=== PATIENT | female | born 1975 ===

== ENCOUNTER → 2021-04-23 08:11 | Outpatient (BNVA) | payer OTHER, SELFPAY | PROVIDERS: Visit Provider Obstetrics & Gynecology | DX: Z01.419 Encounter for gynecological examination (general) (routine) without abnormal findings (principal); Z11.3 Encounter for screening for infections with a predominantly sexual mode of transmission; N93.9 Abnormal uterine and vaginal bleeding, unspecified; B37.2 Candidiasis of skin and nail | CPT/HCPCS: 99212 ==

== ENCOUNTER 2021-04-23 08:46 | Outpatient (REF) | payer OTHER, SELFPAY ==
[2021-04-23 09:36] LABS: Hemoglobin 13.6 g/dl (12.0-16.0); Mean Corpuscular Hemoglobin 30.3 pg (27.0-33.0); Mean Corpuscular Volume 89.1 fL (80.0-98.0); Mean Platelet Volume 11.1 fL (9.4-12.3); Platelet Count 219 X10*3/uL (160-400); Red Blood Count 4.49 X10*6/uL (4.20-5.50); Red Cell Distribution Width 11.9 % (11.0-16.0); White Blood Count 8.2 X10*3/uL (4.8-10.8)
[2021-04-23 10:28] LABS: HCG Quantitative < 2 mIU/mL; TSH reflex Free T4 1.09 uIU/mL (0.32-4.0)
[2021-04-23 10:37] LABS: HIV AB/AG Nonreactive (Nonreactive); HIV Num 1 0.08 S/CO (0.00-0.99); ~HepC Num1 0.11 S/CO (0.00-0.79); ~Hepatitis C Antibody Nonreactive (Nonreactive)
[2021-04-23 11:00] LABS: HBsAGNum1 0.24 S/CO (0.00-0.99); Hepatitis B Surface Antigen Negative (Negative)
[2021-04-23 13:11] LABS: CT PCR NOT DETECTED (Not Detect.); NG PCR NOT DETECTED (Not Detect.)
[2021-04-24 09:10] LABS: Syphilis Screen Nonreactive (Nonreactive)
[2021-04-27 22:07] LABS: HPV mRNA E6/E7 rflx Not Detected (Not Detected)
== END 2021-04-23 08:47 | disposition home or self-care (01) ==
LOC: HO.LAB 08:46
PROVIDERS: Visit Provider Obstetrics & Gynecology
DX: Z01.419 Encounter for gynecological examination (general) (routine) without abnormal findings (principal); N93.9 Abnormal uterine and vaginal bleeding, unspecified; Z11.3 Encounter for screening for infections with a predominantly sexual mode of transmission
CPT/HCPCS: 36415; 84443; 84702; 85027; 86780; 86803; 87340; 87389; 87491; 87591; 87624; 88142

== ENCOUNTER 2022-09-07 14:00 | Outpatient (REF) | payer MEDICAID, SELFPAY ==
[2022-09-10 05:39] LABS: HPV mRNA E6/E7 rflx Not Detected (Not Detected)
== END 2022-09-07 14:01 | disposition home or self-care (01) ==
LOC: HO.LNP 14:00
PROVIDERS: Visit Provider Obstetrics & Gynecology
DX: Z01.419 Encounter for gynecological examination (general) (routine) without abnormal findings (principal); Z11.51 Encounter for screening for human papillomavirus (HPV); N90.89 Other specified noninflammatory disorders of vulva and perineum
CPT/HCPCS: 87624; 88142; 99212

== ENCOUNTER 2023-12-22 10:26 | Outpatient (REF) | payer MEDICAID, SELFPAY ==
[2023-12-22 11:30] LABS: Hematocrit 44.2 % (37.0-47.0); Hemoglobin 15.2 g/dl (12.0-16.0); Mean Corpuscular HGB Conc 34.4 g/dl (31.0-35.0); Mean Corpuscular Hemoglobin 31.2 pg (27.0-33.0); Mean Corpuscular Volume 90.8 fL (80.0-98.0); Mean Platelet Volume 11.2 fL (9.4-12.3); Platelet Count 193 X10*3/uL (160-400); Red Blood Count 4.87 X10*6/uL (4.20-5.50); Red Cell Distribution Width 12.7 % (11.0-16.0); White Blood Count 7.1 X10*3/uL (4.8-10.8)
[2023-12-22 12:14] LABS: HCG Quantitative < 2 mIU/mL; TSH reflex Free T4 0.97 uIU/mL (0.32-4.0)
[2023-12-23 02:47] LABS: CT PCR NOT DETECTED (Not Detect.); NG PCR NOT DETECTED (Not Detect.)
[2023-12-23 21:42] LABS: Prolactin 16.6 ng/mL
== END 2023-12-22 10:27 | disposition home or self-care (01) ==
LOC: HO.LAB 10:26
PROVIDERS: Visit Provider Obstetrics & Gynecology
DX: N93.9 Abnormal uterine and vaginal bleeding, unspecified (principal); N90.89 Other specified noninflammatory disorders of vulva and perineum; Z97.5 Presence of (intrauterine) contraceptive device; Z12.31 Encounter for screening mammogram for malignant neoplasm of breast
CPT/HCPCS: 84146; 84443; 84702; 85027; 87491; 87591; 99212

== ENCOUNTER 2023-12-22 10:26 | Outpatient (AMB) | payer MEDICAID, SELFPAY ==
--- NOTE | 2023-12-22 10:32 | A.OFFVIS_ITS ---
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 In addition the patient had a right labial 0.5 cm dark lesion the recommendation was to schedule a biopsy but the patient has been busy with sickness in her family and did not get a chance to schedule that. Mirena IUD inserted 11/01/2019 Last co testing in 09/05 was negative Last mammogram was many years ago [facility] Medical History OLMAN II (cervical intraepithelial neoplasia II) Hypertension Migraine headache Surgical History History of tonsillectomy and adenoidectomy Hx of tubal ligation H/O LEEP Family History Father Diabetes Hypertension Mother Hypertension Female Reproductive History Menstrual Age of Menarche: 12 Review of Systems Const All systems reviewed & are unremarkable except as noted in HPI and below Card Reports as per HPI Resp Reports as per HPI GI Reports as per HPI and Reports no additional complaints Reports as per HPI Physical Exam Const General: cooperative, healthy appearing and comfortable Chest Chest palpation & inspection: normal inspection of the chest and normal palpation of entire chest wall Breast/axilla inspection: normal inspection of the breasts and normal inspection of the axillae Breast/axilla palpation: normal palpation of the breasts, normal palpation of the axillae and no axillary lymphadenopathy Resp Effort & Inspection: normal respiratory effort Auscultation: clear to auscultation bilaterally Percussion: percussion normal Cardio Palpation: normal PMI Rate: regular rate Rhythm: regular rhythm Heart sounds: no murmurs and no rubs Peripheral pulses: Peripheral pulses 2+ throughout GI Inspection: Yes normal to inspection Palpation (GI): Soft to palpation, nontender, no guarding, not rigid and No hepatosplenomegaly present Percussion: Yes normal to percussion Auscultation: normal bowel sounds Rectal Exam - Female: deferred General: Yes bladder normal to palpation External Female Exam: normal external appearance (0.5 cm right labial dark lesion) and No lesion Speculum Exam - Vagina: normal appearance of the vagina, normal palpation, normal vaginal discharge and not erythematous Speculum Exam - Cervix: normal appearance of the cervix and normal palpation Bimanual exam- vagina & uterus: normal bimanual exam, normal palpation, uterine size normal, bladder normal to palpation, consistency normal and normal palpation Bimanual Exam- Adnexa, other: normal adnexae, no masses and no tenderness Assessment & Plan Assessment & Plan (1) Abnormal uterine bleeding (AUB): Comment: On Mirena IUD Code(s): N93.9 - Abnormal uterine and vaginal bleeding, unspecified Category: Medical Plan: Screening mammogram, GC and chlamydia taken CBC, TSH, prolactin, HCG, and pelvic ultrasound ordered. Discussed with the patient the different causes of abnormal bleeding including thyroid disorders, uterine and ovarian pathology, endometrial hyperplasia, carcinoma and other potential causes. Discussed with the patient the work up including CBC (to r/o anemia), TSH, prolactin, pelvic Ultrasound, endometrial biopsy to r/o endometrial pathology. All questions answered and the patient verbalized understanding. Instructed the patient to schedule an appointment for an endometrial biopsy in 2 weeks. (2) Labial lesion: Comment: Right labia majora 0.5 cm dark lesion Code(s): N90.89 - Other specified noninflammatory disorders of vulva and perineum Category: Medical Plan: Instructions given to the patient to Schedule a vulvar biopsy within 2 weeks Orders: Orders US pelvic and transvaginal Today N93.9 - Abnormal uterine and vaginal bleeding, unspecified Prolactin Today N93.9 - Abnormal uterine and vaginal bleeding, unspecified HCG Quantitative Today N93.9 - Abnormal uterine and vaginal bleeding, unspecified Complete Blood Count no Diff Today N93.9 - Abnormal uterine and vaginal bleeding, unspecified MM screening mammo BI Today Z12.31 - Encounter for screening mammogram for malignant neoplasm of breast TSH reflex Free T4 Today N93.9 - Abnormal uterine and vaginal bleeding, unspecified Coding Level of Care Code Est Pt Level 3 (12353) Diagnoses Abnormal uterine bleeding (AUB) N93.9 Labial lesion N90.89
[2023-12-22 10:34] VITALS: BP 152/92; BMI 26.0
== END 2023-12-22 10:55 | disposition home or self-care (01) ==
LOC: HO.HWS 10:26
PROVIDERS: Visit Provider Obstetrics & Gynecology
DX: N93.9 Abnormal uterine and vaginal bleeding, unspecified (principal); N90.89 Other specified noninflammatory disorders of vulva and perineum
CPT/HCPCS: 99213

== ENCOUNTER 2023-12-22 11:02 | Outpatient (REF) | payer MEDICAID, SELFPAY | END 2023-12-22 11:03 | disposition home or self-care (01) | LOC: HO.LNP 11:02 | PROVIDERS: Visit Provider Obstetrics & Gynecology | DX: Z13.89 Encounter for screening for other disorder (principal) ==

== ENCOUNTER 2023-12-30 13:13 | Outpatient (REF) | payer MEDICAID, SELFPAY ==
--- NOTE | ~2023-12-30 | US_ITS ---
EXAMINATION: US PELVIS CLINICAL INFORMATION: Abnormal uterine and vaginal bleeding; the last menstrual period is not specified. COMPARISON: None available. TECHNIQUE: Ultrasound of the pelvis is performed using both transabdominal and transvaginal transducers along with Doppler. Transvaginal imaging is performed due to inadequate visualization transabdominally. FINDINGS: Uterus: The uterus is anteverted and anteflexed. The uterus measures 7.1 x 3.0 x 3.9 cm. cm. There are nabothian cysts within the cervix, some calcified An intrauterine device is seen, properly situated within the endometrial canal. The endometrial stripe is very thin and is not measured. The uterus is smooth in contour and has normal myometrial echogenicity. No visible fibroid. Adnexa: Both ovaries are visualized. There is normal color flow to the adnexa. There is no ovarian torsion. There is no pelvic ascites or fluid collection. Right ovary measures 2.4 x 1.3 x 1.7 cm, volume 2.8 mL. Left ovary measures 2.6 x 1.2 x 2.0 cm, volume 3.2 mL. US/US pelvic and transvaginal IMPRESSION: 1. An intrauterine device is seen, probably situated within the endometrial canal. 2. There are nabothian cysts within the cervix, some calcified. Electronically signed by: Rylan Fay MD 01/16/2024 10:51 PM EDT
== END 2023-12-30 13:14 | disposition home or self-care (01) ==
LOC: HO.US 13:13
PROVIDERS: Visit Provider Obstetrics & Gynecology
DX: N93.9 Abnormal uterine and vaginal bleeding, unspecified (principal)
CPT/HCPCS: 76830; 76856

== ENCOUNTER 2024-02-07 13:12 | Outpatient (REF) | payer MEDICAID, SELFPAY | END 2024-02-07 13:13 | disposition home or self-care (01) | LOC: HO.LNP 13:12 | PROVIDERS: Visit Provider Obstetrics & Gynecology | DX: Z30.432 Encounter for removal of intrauterine contraceptive device (principal); N90.89 Other specified noninflammatory disorders of vulva and perineum; N93.9 Abnormal uterine and vaginal bleeding, unspecified | CPT/HCPCS: 56605; 58100; 58301; 81025; 88305 ==

== ENCOUNTER 2024-02-07 13:12 | Outpatient (AMB) | payer MEDICAID, SELFPAY ==
--- NOTE | 2024-02-07 13:15 | MHC.OFFVIS ---
Vital Signs 02/07/24 13:22 Height 5 ft 5 in Weight 154 lb 5.177 oz BMI 25.7 BP 142/80 H Intake Visit Reasons: US follow up/EMB/vulva BX Web Weaver Required: No Information Interpreted: non-clinical & clinical Capital Equipment Specialist: Capital Equipment Specialist Present (Marla CONTE) Accompanied by: Self / Same As Patient Allergies No Known Allergies [No Known Allergies*] Allergy (Verified 12/22/23 10:38) Is last menstrual period known: No (mirena) HPI Comments Details: Presenting for Mirena IUD removal the patient's request, EMB and right vulvar lesion excision PFSH Medical History OLMAN II (cervical intraepithelial neoplasia II) Hypertension Migraine headache Surgical History History of tonsillectomy and adenoidectomy Hx of tubal ligation H/O LEEP Family History Father Diabetes Hypertension Mother Hypertension Female Reproductive History Menstrual Age of Menarche: 12 Physical Exam Vital Signs: BMI result Body Mass Index 25.7 Office Procedures Endometrial Biopsy Details: The patient was counseled regarding the indication and benefits of endometrial sampling to rule out endometrial pathology including not limited to endometrial hyperplasia or endometrial cancer and others; The alternatives (Either do nothing vs. hysteroscopy D&C) & the risks were discussed with the patient including but not limited: pain, uterine perforation, bleeding, infection, possible injury to bladder, bowel, ureter, possible need for blood transfusion with all its possible risks. The patient verbalized understanding all questions answered and signed consent. Urine test done in the office was negative The patient was placed into the dorsal lithotomy position; a speculum was inserted in the vagina. Using aseptic technique for the procedure, the cervix was cleansed with Betadine. The anterior lip of the cervix was grasped with a single tooth tenaculum. The uterus was sounded to 7 cm with a 4 mm Pipelle was used. Tissues samples were obtained and placed in formalin, in a patient labeled container and sent to the pathology department. At the end of the procedure, there was minimal bleeding noted The patient tolerated the procedure well and was discharged in good condition with the following instructions: Nothing in the vagina until the bleeding stops. No sex until the bleeding stops, to call if any of the following occurs: fever (>100.4), flu-like symptoms, abdominal pain, heavy bleeding, four smelling vaginal discharge. The patient was instructed to schedule a Follow up appointment in 2 weeks to discuss pathology results of the biopsy and treatment options. This note was generated with a voice recognition program. Some errors may have been overlooked during the review of this note. Sometimes these errors may affect the content or meaning of a given sentence. 93666-Bhrgduvzflw Biopsy HEALTH SOCIAL WORK PROFESSOR Biopsy Before the procedure was started d/w patient the procedure, alternatives ( do nothing, medical rx), & all the risks associated with the procedure ( bleeding , infection, vulvar scarring, painful intercourse, injury to vessels, possible need for transfusion with all its risks) then patient signed the consent. Preop dx: Right labia majora 0.5 cm dark lesion Op: Right labia majora 0.5 cm dark lesion lesion excision Post op: Same Anesthesia: Lidocaine 1% 3cc used Procedure: Using betadine the area was scrubbed and draped in the usual manner. 3 cc of lidocaine was used for anesthesia at the Right labia majora 0.5 cm dark lesion area ; using scissors and pickup the Right labia majora 0.5 cm dark lesion was excised, Vicryl was used to approximate the edges. Pressure was used for hemostasis. The patient tolerated the procedure well. Discharge Instructions: The patient was instructed to schedule an appointment in 2 weeks for follow-up and to call if temp>100.4, area of the biopsy redness or pain, nausea/vomiting. This note was generated with a voice recognition program. Some errors may have been overlooked during the review of this note. Sometimes these errors may affect the content or meaning of a given sentence. 25762-Pyfvip of Vulva/Perineum Procedure code (CPT) selection complete IUD Insert/Removal Details Details: Counseling/Consent: After discussing with the patient the risks of the procedure including bleeding, infection, scar tissue formation, , possible injury to blood vessels or nerves, chronic arm pain, blood transfusion, and irregular unpredictable bleeding Alternative options were discussed with the patient including but not limited: Do nothing. The patient signed the consent and agreed with the plan; all questions answered. Urine test was done in the office and was negative Preop dx: Requesting IUD removal Op: IUD removal Post op dx: same EBL= 10 cc Procedure: The patient was put in the dorsal lithotomy position a speculum was inserted in the vagina the IUD thread identified. Using a Kat clamp the thread was grasped and the IUD pulled out with no complications. The patient tolerated the procedure well and was advised to use a different method for contraception. Discharge instructions: Instructions were given to the pt to call if temp>100.4, abdominal pain heavy vaginal bleeding, n/v occur. The patient verbalized understanding and all questions answered. This note was generated with a voice recognition program. Some errors may have been overlooked during the review of this note. Sometimes these errors may affect the content or meaning of a given sentence. 24864-XJS Removal Procedure code (CPT) selection complete Results AMB Test Urine AMB Test Urine Negative Last Edit by Marla Telles CMA on 02/07/24 13:30 Assessment & Plan Assessment & Plan (1) Encounter for IUD removal: Code(s): Z30.432 - Encounter for removal of intrauterine contraceptive device Category: Medical Plan: Mirena IUD removed, see procedure note (2) Labial lesion: Comment: Right labia majora 0.5 cm dark lesion Code(s): N90.89 - Other specified noninflammatory disorders of vulva and perineum Category: Medical Plan: Right labia majora 0.5 cm dark lesion excised, see procedure note (3) Abnormal uterine bleeding (AUB): Code(s): N93.9 - Abnormal uterine and vaginal bleeding, unspecified Category: Medical Plan: EMB done, see procedure Orders: Orders AMB Endometrial Biopsy Today N93.9 - Abnormal uterine and vaginal bleeding, unspecified AMB HCG Urine Test Today Z32.02 - Encounter for test, result negative AMB HEALTH SOCIAL WORK PROFESSOR Biopsy Today N90.89 - Other specified noninflammatory disorders of vulva and perineum Coding Level of Care Code Procedure Only Diagnoses Encounter for IUD removal Z30.432 Labial lesion N90.89 Abnormal uterine bleeding (AUB) N93.9 CPT Codes Endometrial Biopsy - CPT: 20199-Fndrsdruroy Biopsy ([id number]) HEALTH SOCIAL WORK PROFESSOR Biopsy - CPT: 10934-Vmpjyd of Vulva/Perineum ([id number]) Details - CPT: 37757-LSW Removal ([id number])
[2024-02-07 13:22] VITALS: BP 142/80; BMI 25.7
== END 2024-02-07 13:55 | disposition home or self-care (01) ==
PROVIDERS: Visit Provider Obstetrics & Gynecology
DX: N93.9 Abnormal uterine and vaginal bleeding, unspecified (principal); N90.89 Other specified noninflammatory disorders of vulva and perineum; Z30.432 Encounter for removal of intrauterine contraceptive device; Z32.02 Encounter for pregnancy test, result negative
CPT/HCPCS: 56605; 58100; 58301

== ENCOUNTER 2024-02-14 11:56 | Outpatient (AMB) | payer MEDICAID, SELFPAY ==
--- NOTE | 2024-02-14 12:08 | MHC.OFFVIS ---
Vital Signs 02/14/24 12:14 Height 5 ft 5 in Weight 154 lb 5.177 oz BMI 25.7 Intake Visit Reasons: Mirena Insertion Allergies No Known Allergies [No Known Allergies*] Allergy (Verified 12/22/23 10:38) HPI Comments Details: The patient is presenting for follow-up to discuss the results of her abnormal uterine bleeding workup and options of treatment. The following workup was done.: H&H within normal TSH, hCG, GC and chlamydia were negative. Endometrial/vulvar biopsy pathology showed the following: A. Endometrium, biopsy: Fragments of inactive endometrium with pseudo-decidual stromal change consistent with progestin effect; negative for atypia, hyperplasia or malignancy. B. Vulva, right labia majora, biopsy: Fibroma Co testing was done in 2022 was negative. Mammogram was not done yet Pelvic ultrasound showed the following: IMPRESSION: 1. An intrauterine device is seen, probably situated within the endometrial canal. 2. There are nabothian cysts within the cervix, some calcified. IUD was removed few weeks ago PFS Medical History OLMAN II (cervical intraepithelial neoplasia II) Hypertension Migraine headache Surgical History History of tonsillectomy and adenoidectomy Hx of tubal ligation H/O LEEP Family History Father Diabetes Hypertension Mother Hypertension Female Reproductive History Menstrual Age of Menarche: 12 Review of Systems Const All systems reviewed & are unremarkable except as noted in HPI and below Reports as per HPI and Reports no additional complaints GI Reports no additional complaints Reports no additional complaints Physical Exam Vital Signs: BMI result Body Mass Index 25.7 Assessment & Plan Assessment & Plan (1) Abnormal uterine bleeding (AUB): Code(s): N93.9 - Abnormal uterine and vaginal bleeding, unspecified Category: Medical Plan: Discussed with the patient the results of the work up done and options of treatment including Lysteda, BCP's, Mirena IUD. All pros, cons, risks and benefits if each option was discussed with the patient and the patient decided to think about it and get back to us. All questions answered the patient verbalized understanding. (2) Labial lesion: Comment: Right labia majora 0.5 cm dark lesion Code(s): N90.89 - Other specified noninflammatory disorders of vulva and perineum Category: Medical Plan: Discussed with the patient the results the pathology. All questions answered, the patient verbalized understanding Coding Level of Care Code Est Pt Level 3 (74563) Diagnoses Abnormal uterine bleeding (AUB) N93.9 Labial lesion N90.89
[2024-02-14 12:14] VITALS: BMI 25.7
== END 2024-02-14 12:30 | disposition home or self-care (01) ==
PROVIDERS: Visit Provider Obstetrics & Gynecology
DX: N93.9 Abnormal uterine and vaginal bleeding, unspecified (principal); N90.89 Other specified noninflammatory disorders of vulva and perineum
CPT/HCPCS: 99213

== ENCOUNTER → 2024-02-14 11:56 | Outpatient (BNVA) | payer MEDICAID, SELFPAY | PROVIDERS: Visit Provider Obstetrics & Gynecology | DX: N93.9 Abnormal uterine and vaginal bleeding, unspecified (principal); N90.89 Other specified noninflammatory disorders of vulva and perineum; N88.8 Other specified noninflammatory disorders of cervix uteri; Z97.5 Presence of (intrauterine) contraceptive device | CPT/HCPCS: 99212 ==

== ENCOUNTER 2024-08-16 10:05 | Outpatient (REF) | payer MEDICAID, SELFPAY ==
--- OUTSIDE RECORDS SUMMARY | 2024-08-16 12:08 | XMS_ITS | Encounter Summary ---
Author Organization [facility] Address [address] [place] [address] Care Team Providers Care Registration Scheduling Specialist Name Role Phone Nan Ozzievanessa OROPEZA-Dipak Primary Care Provider [phone] Reason for Visit * Reason Comments Establish Care Encounter Details Date Type Department Care Team (Late st Contact Info) Description 08/13/2024 9:20 AM EDT Office Visit [address] [phone] Brenna Deleon PA [address] [place] [address] Encounter to establish care (Primary Dx); Seasonal [...] [place]. Reports that she is going to [place] in two weeks and needs 90 day [...] periods. Has an appointment next week with ENRICHMENT DIRECTOR o get IUDplaced in again. Recent CPE: [...] (FLONASE) 50 mcg/actuation nasal spray Place 1 [place] in both nostrils once daily shake liquid 16 g 1 losartan (COZAAR) 25 mg tablet TAKE 1 TABLET BY MOUTH DAILY 90 Tablet 1 hydrOXYzine HCL (ATARAX) 50 mg tablet Take 1 Tablet by mouth 3 (three) times daily as needed for anxiety 90 Tablet 0 No current facility-administered medications for this visit. Specialists/Care Team: TRADE FACILITATOR: Gracie Depression Screenin01/25/2024 1:45 PM How many [...] as patient has BH appointment tomorrow with [facility]. Patient is aware of appointment . No [...] 50 MCG/ACTUATION NASAL SPRAY,SUSPENSION - Place 1 [place] in both nostrils once daily shake liquid Z76.0 Medication refill Plan : CETIRIZINE 10 MG TABLET - Take 1 Tablet by mouth once daily FLUTICASONE PROPIONATE 50 MCG/ACTUATION NASAL SPRAY,SUSPENSION - Place 1 [place] in both nostrils once daily shake liquid I10 Essential hypertension - BP elevation in office most likely secondary to missed med doses. Restart losartan 25 mg daily and keep low salt diet G47.00 Insomnia, unspecified type - continue hydroxyzine 50 mg TID for anxiety due to grief and to help sleep at night N92.0 Polymenorrhea - f/u with sample prep technician Z23 Immunization due Plan : TDAP VACCINE [...] documented as of this encounter Care Teams Registration Scheduling Specialist Relationship Specialty Start Date End Date Efrem Montana FNP-C [address] [place] [id number] PCP - General Internal Medicine 10/04/23 documented as of this encounter
--- OUTSIDE RECORDS SUMMARY | 2024-08-16 12:08 | XMS_ITS | Clinical Summary ---
Author Organization [facility] Address [address] [place] [address] Care Team Providers Care Camera Engineer Name Role Phone Efrem Montana SALESPERSON PETS AND PET SUPPLIES-C Primary Care Provider [phone] [phone] Source Comments PLEASE NOTE, if this patient [...] sprayIndications :Seasonal allergies,Medica tion refill Place 1 [place] in both nostrils once daily shake liquid [...] Description 08/13/2024 9:20 AM EDT Office Visit [address] [phone] Brenna Deleon PA Encounter to [...] 11/12/2024 Postpo martin from 1976 (Patient postponement) [id number] ( season) 2024 Postponed from 01/14 (Patient [...] A1C 5.3 <5.7 % of total Hgb [facility] Comment: For the purpose of screening for the presence of diabetes: <5.7% ? Consistent with the absence of diabetes 5.7-6.4% ?Consistent with increased risk for diabetes ?(prediabetes) > or =6.5% ??Consistent with diabetes This assay result is consistent with a decreased risk of diabetes. Currently, no consensus exists regarding use of hemoglobin A1c for diagnosis of diabetes in children. According to [place] Diabetes Association (ADA) guidelines, hemoglobin A1c <7.0% represents optimal control in non- diabetic patients. Different metrics may apply to specific patient populations. Standards of Medical Care in Diabetes(ADA). ?? Blood Blood / Unknown 01/25/2024 3 :02 PM EDT 01/25/2024 3:03 PM EDT Narrative [facility] - 01/26/2024 8:02 AM EDT FASTING:YES Efrem Montana SALESPERSON PETS AND PET SUPPLIES-C LAB - BLOOD DRAW Ne R cristian - Final [facility] [address] [place] [address], [facility] [address] [place] [phone] * LIPID PANEL (01/25/2024 3:02 PM EDT) [facility] Signature CHOLESTEROL, TOTAL 184 <200 mg/dL [facility] HDL CHOLESTEROL 71 > OR = 50 mg/dL [facility] TRIGLYCERIDES 101 <150 mg/dL [facility] LDL-CHOLESTEROL 94 99 mg/dL (calc) [facility] Comment: Reference range: <100 Desirable range <100 mg/dL for primary prevention; ?? <70 mg/dL for patients with CHD or diabetic patients with > or = 2 CHD risk factors. LDL-C is now calculated using the Avtar calculation, which is a validated novel method providing better accuracy than the Friedewald equation in the estimation of LDL-C. Devin JULIO et al. HUSSEIN. 2013;310(19): 8072-8081 (http://education.[employer]ware Solutions/faq/UDG847) CHOL/HDLC RATIO 2.6 <5.0 (calc) [facility] NON-HDL CHOLESTEROL 113 <130 mg/dL (calc) [facility] Comment: For patients with diabetes plus 1 major ASCVD risk factor, treating to a non-HDL-C goal of <100 mg/dL (LDL-C of <70 mg/dL) is considered a therapeutic option. Blood Blood / Unknown 01/25/2024 3 :02 PM EDT 01/25/2024 3:03 PM EDT Narrative [facility] - 01/26/2024 8:02 AM EDT FASTING:YES Efrem Montana SALESPERSON PETS AND PET SUPPLIES-C LAB - BLOOD DRAW Final Re sult [facility] [address] [address], [facility] [address] [place] [address] from Last 3 Months or Most Recently Relevant to Health Maintenance Insurance [facility] [employer] Care Teams Camera Engineer Relationship Specialty Start Date End Date Efrem Montana FNP-C [address] [place] [address] PCP - General Internal Medicine 10/04/23
--- OUTSIDE RECORDS SUMMARY | 2024-08-16 12:08 | XMS_ITS | Clinical Summary ---
Author Organization [employer] Address [address] [place] [address] [address] [place] [address] Care Team Providers Care Mail Clerk Name Role Phone Unavailable Primary Care Provider [...]
[2024-08-17 02:42] LABS: CT PCR NOT DETECTED (Not Detect.); NG PCR NOT DETECTED (Not Detect.)
== END 2024-08-16 10:06 | disposition home or self-care (01) ==
LOC: HO.LNP 10:05
PROVIDERS: Visit Provider Obstetrics & Gynecology
DX: Z30.430 Encounter for insertion of intrauterine contraceptive device (principal); Z32.02 Encounter for pregnancy test, result negative; Z87.410 Personal history of cervical dysplasia; Z11.3 Encounter for screening for infections with a predominantly sexual mode of transmission
CPT/HCPCS: 58300; 81025; 87491; 87591; J7298

== ENCOUNTER 2024-08-16 10:05 | Outpatient (AMB) | payer MEDICAID, SELFPAY ==
[2024-08-16 10:31] VITALS: BP 122/76; BMI 25.6
--- NOTE | 2024-08-16 10:31 | MHC.OFFVIS ---
Vital Signs 08/16/24 10:31 Height 5 ft 5 in Weight 154 lb BMI 25.6 BP 122/76 Intake Visit Reasons: Mirena insertion Accompanied by: Self / Same As Patient Allergies No Known Allergies [No Known Allergies*] Allergy (Verified 08/16/24 10:32) HPI Comments Details: Presenting for IUD insertion [facility] Medical History (Updated 08/16/24 @ 10:54 by Roc Spence MD) OLMAN II (cervical intraepithelial neoplasia II) Hypertension Migraine headache Surgical History History of tonsillectomy and adenoidectomy Hx of tubal ligation H/O LEEP Family History Father Diabetes Hypertension Mother Hypertension Female Reproductive History Menstrual Age of Menarche: 12 Physical Exam Vital Signs: Last Vital Signs BP 122/76 08/16/24 10:31 Office Procedures IUD Insert/Removal Details Details: The patient is presenting for Mirena IUD insertion Urine test was done in the office and was negative; All the contraindications were excluded. The following possible complications were discussed with the patient: Intrauterine , Ectopic , Sepsis, Pelvic Infection, Irregular Bleeding and Amenorrhea, Perforation, Expulsion, Ovarian Cysts, Breast Cancer, The following adverse effects were discussed with the patient: alteration of menstrual bleeding pattern, including: unscheduled uterine bleeding decreased uterine bleeding increased scheduled uterine bleeding female genital tract bleeding ,amenorrhea , genital discharge , vulvovaginitis , breast pain , benign ovarian cyst and associated complications , dysmenorrhea , Gastrointestinal disorders abdominal/pelvic pain, headache/migraine , back pain , acne , depression Alternative options were discussed with the patient including but not limited: control pills, patch, NuvaRing, Depo-medroxyprogesterone acetate, Nexplanon, copper IUD, sterilization, vasectomy, others The procedure was explained in detail to patient , at the end patient signed the informed consent obtained. A no touch technique was used throughout the procedure. A speculum was placed into vagina and cervix was cleaned with betadine). A tenaculum was placed. A plastic sound was advanced through the external and internal os until it reached the fundus of the uterus, the depth was 8 cm. The sound was then withdrawn. The IUD was loaded in a sterile manner and advanced into position. The string was visualized and cut to 3 cm. Tenaculum site hemostatic. All instruments removed from vagina. Patient tolerated the procedure well. NO complications were noted. Patient was instructed to call for fever over 100.4, significant pain unrelieved by Motrin, IUD expulsion, heavy bleeding, or abnormal discharge. In addition, the following clinical considerations were discussed with the patient to call for removal: A stroke or heart attack ,Very severe or migraine headaches ,Unexplained fever ,Yellowing of the skin or whites of the eyes, as these may be signs of serious liver problems , or suspected , Pelvic pain or pain during sex ,HIV positive seroconversion in herself or her partner , Possible exposure to sexually transmitted infections Unusual vaginal discharge or genital sores , severe vaginal bleeding or bleeding that lasts a long time, or if she misses a menstrual period, Inability to feel Mirena's threads Counseled the patient that the IUD does not protect against STI's, recommended use of condoms for the first 7 days post insertion and explained to the patient that condoms are recommended for patients at risk for sexually transmitted infections. Informed the patient that Mirena IUD is FDA approved for 8 years for contraception for 5 years for the treatment of heavy menses Instructed the patient to schedule a Follow up appointment in 4 to 6 weeks following insertion. This note was generated with a voice recognition program. Some errors may have been overlooked during the review of this note. Sometimes these errors may affect the content or meaning of a given sentence. 05105-HYQ Insertion Procedure code (CPT) selection complete Office Meds Mirena 21 mcg/24 hr (up to 8 years) 52 mg intrauterine device Performing Provider: Roc Spence MD Performing Location: [facility] Documented (not given) by: Roc Spence MD on 08/16/24 10:53 Dose Route Admin Location Dispensed Lot Number Expiration Date [facility] Piercing Specialist 1 device intrauterine ea Results AMB Test Urine AMB Test Urine Negative Last Edit by Marla Telles CMA on 08/16/24 10:45 Results Reviewed Results Reviewed: Laboratory Last Values [facility] Negative 08/16/24 10:45 Assessment & Plan Assessment & Plan (1) Encounter for IUD insertion: Code(s): Z30.430 - Encounter for insertion of intrauterine contraceptive device Category: Medical Plan: GC/CT taken, Mirena IUD inserted Orders: Orders AMB HCG Urine Test Today Z32.02 - Encounter for test, result negative AMB IUD Insertion/Removal - Practice Supplied Today Z30.430 - Encounter for insertion of intrauterine contraceptive device Medications: New Mirena (levonorgestrel) 1 device intrauterine ONCE 1 ea 0RF IUD insertion NS Z30.430 - Encounter for insertion of intrauterine contraceptive device Coding Level of Care Code Procedure Only Diagnoses Encounter for IUD insertion Z30.430 CPT Codes Details - CPT: 99521-SEJ Insertion ([id number])
--- OUTSIDE RECORDS SUMMARY | 2024-08-16 10:50 | XMS_ITS | Clinical Summary ---
Author Organization [employer] Address [address] [place] [address] [address] [place] [address] Care Team Providers Care Firebreak Cutter Name Role Phone Unavailable Primary Care Provider Unavailabl e Social History Tobacco Use Types Packs/Day Years Used Date Smoking Tobacco: Never Assessed Comments Unknown Sex and Gender Information Value Date Recorded Sex Assigned at Female 03/15/2022 10:15 AM EDT Legal Sex Female 10:15 AM EDT Gender Identity Not on file Sexual Orientation Not on file Plan of Treatment Health Maintenance Due Date Last Done Comments CT Colonography 1976 Colonoscopy 1976 Colorectal Cancer Screening 1976 Depression Screening 1976 FIT DNA/Cologuard 1976 FIT 1976 FOBT 1976 Sigmoidoscopy 1976 Alcohol/Substance Use Screening 1988 Tobacco Screening 1988 Family Planning (PISQ) 1991 DTaP/Tdap/Td Vaccines (1 - Tdap) 1995 Hepatitis B Vaccines (1 of 3 - 19+ 3-dose series) 1995 Pap Smear 1997 Cervical Cancer Screening 2006 HPV/Cotest 2006 Mammogram 2016 COVID-19 Vaccine ( - 2023-2 5 season) 2024 Influenza Vaccine (#1) 2024 2, 02/27/2021, 03/11/2015 Zoster Vaccines (1 of 2) 2026 RSV Patients and Patients Aged 60 years or older (1 - 1-dose 75+ series) 2051 HIB Vaccines Aged Out No longer eligi ble based on patient's age to complete this topic HPV Vaccines Aged Out No longer eligi ble based on patient's age to complete this topic Hepatitis A Vaccines Aged Out No long er eligible based on patient's age to complete this topic IPV Vaccines Aged Out No longer eligi ble based on patient's age to complete this topic Meningococcal Vaccine Aged Out No milady keiko eligible based on patient's age to complete this topic Pneumococcal Vaccine: Pediatrics (0 to 5 Years) and At-Risk Patients (6 to 49) Years) Aged Out No longer eligible b ased on patient's age to complete this topic RSV under 20 months Aged Out No longe r eligible based on patient's age to complete this topic Rotavirus Vaccines Aged Out No longer eligible based on patient's age to complete this topic
--- OUTSIDE RECORDS SUMMARY | 2024-08-16 10:50 | XMS_ITS | Clinical Summary ---
Author Organization [facility] Address [address] [place] [address] Care Team Providers Care Property Staff Accountant Name Role Phone Efrem Montana CHAINSTITCH TUNNEL ELASTIC OPERATOR-C Primary Care Provider [phone] Source Comments PLEASE NOTE, if this patient is a minor, it may be UNLAWFUL to discuss sensitive information that is contained in these records (such as FAMILY PLANNING, MENTAL HEALTH or SUBSTANCE ABUSE) with the minor patient's parent or other person without the patient's specific authorization.[facility] Allergies No known active allergies Medications hydrOXYzine HCL (ATARAX) 50 mg tabletIndication s:Grief reaction Take 1 Tablet by mouth 3 (three) times daily as needed for anxiety 90 Tablet 01/25/20 24 Active losartan (COZAAR) 25 mg tabletIndication s:Essential hypertension TAKE 1 TABLET BY MOUTH DAILY 90 Tablet 1 08/08/19 25 Active cetirizine (ZYRTEC) 10 mg tabletIndication s:Seasonal allergies,Medica tion refill Take 1 Tablet by mouth once daily 90 Tablet 1 08/14/19 25 Active fluticasone (FLONASE) 50 mcg/actuation nasal sprayIndications :Seasonal allergies,Medica tion refill SHAKE LIQUID WELL AND INSTILL 1 SPRAY IN BOTH NOSTRILS DAILY 16 g 1 08/16/19 25 Active cetirizine (ZYRTEC) 10 mg tabletIndication s:Seasonal allergies TAKE 1 TABLET BY MOUTH EVERY DAY 30 Tablet 1 08/06/19 025 Discontinued(Re order (E-Cancel Not Sent)) BANOPHEN 50 mg capsuleIndicatio ns:Seasonal allergies TAKE ONE CAPSULE BY MOUTH EVERY NIGHT AT BEDTIME NEEDED FOR ITCHING 30 Capsule 1 08/06/19 23 025 Discontinued(Th erapy completed/Not needed) fluticasone (FLONASE) 50 mcg/actuation nasal sprayIndications :Seasonal allergies SHAKE LIQUID AND USE 1 SPRAY IN EACH NOSTRIL EVERY DAY 16 g 1 01/19/20 23 025 Discontinued(Re order (E-Cancel Not Sent)) losartan (COZAAR) 25 mg tabletIndication s:Essential hypertension Take 1 Tablet by mouth once daily 90 Tablet 1 01/25/20 24 025 Discontinued fluticasone (FLONASE) 50 mcg/actuation nasal sprayIndications :Seasonal allergies,Medica tion refill Place 1 [place] in both nostrils once daily shake liquid 16 g 1 08/14/19 25 025 Discontinued Active Problems Problem Noted Date Diagnosed Date Grief reaction 08/14/2024 Insomnia 08/13/2024 Polymenorrhea 08/13/2024 Tubal ligation status, age 31 10/06/2021 Essential hypertension 10/06/2021 Seasonal allergies 10/06/2021 Hx of migraines 10/06/2021 Tobacco dependency 10/06/2021 Resolved Problems Problem Noted Date Diagnosed Date Resolved Date History of tonsillectomy and adenoidectomy- age 9 10/06/2021 09/24/2022 Encounters Date Type Department Care Team Description 08/13/2024 9:20 AM EDT Office Visit [address] [phone] Brenna Deleon PA Encounter to establish care (Primary Dx); Seasonal allergies; Medication refill; Essential hypertension; Insomnia, unspecified type; Polymenorrhea; Immunization due; Screening for colon cancer; Grief reaction from Last 3 Months Immunizations Immunization Administration Dates Next Due Flu, Preservative Free 03/22/2022,02/27/2021 INFLUENZA, SEASONAL, INJECTABLE 03/11/2015 PNEUMOCOCCAL CONJUGATE PCV 20 (Prevnar) 08/14/19 25 TDAP 08/13/2024 Family History Medical History Relation Name Comments Heart Problems Brother Heart attack Brother Relation Name Status Comments Brother Father Mother Social History Tobacco Use Types Packs/Day Years Used Date Smoking Tobacco: Some Days Smokeless Tobacco: Never Tobacco Cessation:Ready to Q uit: No; Counseling Given: Yes Comments:socially Alcohol Use Standard Drinks/Week Comments Yes 0 (1 standard drink = 0.6 oz pur e alcohol) socially Social Connections Answer Date Recorded Connectedness 0 01/22/2024 Financial Resource Strain Answer Date R ecorded Financial Resource Strain 0 2020 Stress Answer Date Recorded Stress 0 11/25/2020 Physical Activity Answer Date Recorded Physical Activity 0 11/25/2020 Food Insecurity Answer Date Recorded Food 0 02/09/2024 Transportation Needs Answer Date Record ed Transportation 0 11/25/2020 Housing Stability Answer Date Recorded Housing 0 11/25/2020 Safety and Environment Answer Date Balta rded Safety 1 01/25/2024 Utilities Answer Date Recorded Utilities 0 11/25/2020 Employment Answer Date Recorded Stress 0 10/06/2021 Comments No Sex and Gender Information Value Date Recorded Sex Assigned at Female 11/25/2020 10:11 AM PDT Legal Sex Female 11:20 AM PDT Gender Identity Female 11/25/2020 10:11 AM PDT Sexual Orientation Straight 11/25/2020 10 :11 AM PDT Last Filed Vital Signs Vital Sign Reading Time Taken Comments Blood Pressure 160/84 08/13/2024 9:51 AM EDT Pulse 79 08/13/2024 9:51 AM EDT Temperature 36.6 ??C (97.9 ??F) 08/13/2024 9:51 AM ED T Respiratory Rate 16 08/13/2024 9:51 AM EDT Oxygen Saturation 98% 08/13/2024 9:51 AM EDT Inhaled Oxygen Concentration - - Weight 79.4 kg (175 lb) 08/13/2024 9:51 AM EDT Height 165.1 cm (5' 5 ) 08/13/2024 9:51 AM EDT Body Mass Index 29.12 08/13/2024 9:51 AM EDT Plan of Treatment Health Maintenance Due Date Last Done Comments Anxiety Screening 1976 HPV Screening 1976 Pap + HPV 1976 Imm-Hepatitis B (1 of 3 - 19+ 3-dose series) 1995 Cervical Cancer Screening 1997 Pap Smear 1997 Breast Cancer Screening (Mammogram) 2016 CT Colonography 2021 Colonoscopy 2021 Colorectal Cancer Screening 2021 FIT/gFOBT 2021 Fecal DNA 2021 Flexible Sigmoidoscopy 2021 HIV Screening 11/12/2024 Postponed from 1991 (Patient postponement) Hepatitis C Screening 11/12/2024 Postpo martin from 1976 (Patient postponement) [id number] ( season) 2024 Postponed from 01/14 (Patient postponement) Imm-Influenza (#1) 2024 03/22/2022, 02/27/2021, 03/11/2015 Postponed from 01/15/2024 (Patient postponement) Relationship Safety Screening/Counseling 01/24/2025 01/25/2024, 10/06/2021 Tobacco Cessation Counseling (#1) 08/13/2025 10/06/2021 Diabetes Screening 01/24/2027 01/25/2024, 01/25/2024 Lipid Screening 01/24/2027 01/25/2024 Imm-DTaP/Tdap/Td (2 - Td or Tdap) 08/13/2034 08/13/2024 Depression Annual Screen Completed 07/09/2024 Alcohol and Drug Screen Addressed 08/14/19, 01/25/2024, 10/06/2021 Overridden with the intention of not completing the topic Imm-Pneumococcal Completed 08/13/2024 Cervical Ablation/Cold-Knife Conization Discontinued Cervical Cryotherapy Discontinued Colposcopy Discontinued Endometrial Biopsy Discontinued Excision/Leep Discontinued HPV Genotyping Discontinued Vaginal Pap Discontinued Vulvoscopy Discontinued Procedures Procedure Name Priority Date/Time Associated Diagnosis Comments HEMOGLOBIN GLYCOSYLATED A1C Routine 01/25/2024 3:02 PM EDT Essential hypertension LIPID PANEL Routine 01/25/2024 3:02 PM EDT Essential hypertension from Last 3 Months or Most Recently Relevant to Health Maintenance Results * HEMOGLOBIN GLYCOSYLATED A1C (01/25/2024 3:02 PM EDT) HEMOGLOBIN A1C 5.3 <5.7 % of total Hgb [facility] Comment: For the purpose of screening for the presence of diabetes: <5.7% ? Consistent with the absence of diabetes 5.7-6.4% ?Consistent with increased risk for diabetes ?(prediabetes) > or =6.5% ??Consistent with diabetes This assay result is consistent with a decreased risk of diabetes. Currently, no consensus exists regarding use of hemoglobin A1c for diagnosis of diabetes in children. According to [place] Diabetes Association (ADA) guidelines, hemoglobin A1c <7.0% represents optimal control in non- diabetic patients. Different metrics may apply to specific patient populations. Standards of Medical Care in Diabetes(ADA). ?? Blood Blood / Unknown 01/25/2024 3 :02 PM EDT 01/25/2024 3:03 PM EDT Narrative [facility] - 01/26/2024 8:02 AM EDT FASTING:YES Efrem Montana CHAINSTITCH TUNNEL ELASTIC OPERATOR-C LAB - BLOOD DRAW Ne R cristian - Final [facility] [address] [place] [id number], [facility] [address] [place] [phone] * LIPID PANEL (01/25/2024 3:02 PM EDT) [facility] Signature CHOLESTEROL, TOTAL 184 <200 mg/dL [facility] HDL CHOLESTEROL 71 > OR = 50 mg/dL [facility] TRIGLYCERIDES 101 <150 mg/dL [facility] LDL-CHOLESTEROL 94 99 mg/dL (calc) [facility] Comment: Reference range: <100 Desirable range <100 mg/dL for primary prevention; ?? <70 mg/dL for patients with CHD or diabetic patients with > or = 2 CHD risk factors. LDL-C is now calculated using the Avtar calculation, which is a validated novel method providing better accuracy than the Friedewald equation in the estimation of LDL-C. Devin JULIO et al. HUSSEIN. 2013;310(19): 7569-3427 (http://education.plista/faq/RVJ909) CHOL/HDLC RATIO 2.6 <5.0 (calc) [facility] NON-HDL CHOLESTEROL 113 <130 mg/dL (calc) [facility] Comment: For patients with diabetes plus 1 major ASCVD risk factor, treating to a non-HDL-C goal of <100 mg/dL (LDL-C of <70 mg/dL) is considered a therapeutic option. Blood Blood / Unknown 01/25/2024 3 :02 PM EDT 01/25/2024 3:03 PM EDT Narrative [facility] - 01/26/2024 8:02 AM EDT FASTING:YES Efrem Montana CHAINSTITCH TUNNEL ELASTIC OPERATOR-C LAB - BLOOD DRAW Final Re sult [facility] [address] [address], [facility] [address] [place] [address] from Last 3 Months or Most Recently Relevant to Health Maintenance Insurance [facility] [employer] Care Teams Property Staff Accountant Relationship Specialty Start Date End Date Efrem Montana FNP-C [address] [place] [address] PCP - General Internal Medicine 10/04/23
--- OUTSIDE RECORDS SUMMARY | 2024-08-16 10:50 | XMS_ITS | Encounter Summary ---
Author Organization [facility] Address [address] [place] [address] Care Team Providers Care Synthetic Gem Press Operator Name Role Phone Nan Ozzievanessa OROPEZA-Dipak Primary Care Provider [phone] Reason for Visit * Reason Comments Establish Care Encounter Details Date Type Department Care Team (Late st Contact Info) Description 08/13/2024 9:20 AM EDT Office Visit [address] [phone] Brenna Deleon PA [address] [place] [address] Encounter to establish care (Primary Dx); Seasonal allergies; Medication refill; Essential hypertension; Insomnia, unspecified type; Polymenorrhea; Immunization due; Screening for colon cancer; Grief reaction Social History Tobacco Use Types Packs/Day Years [...] Orientation Straight 11/25/2020 10 :11 AM PDT documented as of this encounter Last Filed Vital Signs Vital Sign Reading [...] Mass Index 29.12 08/13/2024 9:51 AM EDT documented in this encounter Progress Notes * TARA Salgado - 08/13/2024 9:57 AM EDT Subjective: CC: new patient Interpreting services : None HPI: Hilaria Grande is a 49 year old female patient who presents to [facility]. Reports that she is going to [place] in two weeks and needs 90 day supply of her medications. Has not been on BP medication for a couple days. Reports issues with sleeping. Not sleeping more than 2 hours. Previously prescribed hydroxyzine does help. Reports she has lost multiple family members recently. Reports that she is getting her period every two weeks x two months. She use to have an IUD that controlled her periods. Has an appointment next week with FIBER HEEL PIECE SHAPER o get IUDplaced in again. Recent CPE: Never Recent Hospitalizations: No Social History Occupation: Unemployed currently Social History Tobacco Use Smoking status: Some Days Smokeless tobacco: Never Tobacco comments: socially Vaping Use Vaping status: Never Used Substance Use Topics Alcohol use: Yes Comment: socially Drug use: Never No Known Allergies Patient Active Problem List Diagnosis Tubal ligation status, age 31 Essential hypertension Seasonal allergies Hx of migraines Tobacco dependency Insomnia Polymenorrhea No past surgical history on file. Family History Problem Relation Name Age of Onset Heart Problems Brother Heart attack Brother Current Outpatient Medications Medication Sig Dispense Refill cetirizine (ZYRTEC) 10 mg tablet Take 1 Tablet by mouth once daily 90 Tablet 1 fluticasone (FLONASE) 50 mcg/actuation nasal spray Place 1 [place] in both nostrils once daily shake liquid 16 g 1 losartan (COZAAR) 25 mg tablet TAKE 1 TABLET BY MOUTH DAILY 90 Tablet 1 hydrOXYzine HCL (ATARAX) 50 mg tablet Take 1 Tablet by mouth 3 (three) times daily as needed for anxiety 90 Tablet 0 No current facility-administered medications for this visit. Specialists/Care Team: WASH AND GREASER: Gracie Depression Screenin01/25/2024 1:45 PM How many times in the past year have you had 4 or more drinks in a day? NONE How many times in the past year have you used a recreational drug or used a prescription medicationfor nonmedical reasons? NONE Did patient decline PHQ screening? No Little interest or pleasure in doing things Several days Feeling down, depressed or hopeless [include irritable if under 18] Several days PHQ2 Score (!) 2 Little interest or pleasure in doing things Several days Feeling down, depressed or hopeless [include irritable if under 18] Several days Trouble falling or staying asleep, or sleeping too much More than half the days Feeling tired or having little energy More than half the days Poor appetite or overeating Several days Feeling bad about yourself - or that you are a failure or have let yourself or your family down Several days Trouble concentrating on things like school work, reading or watching TV? Not at all Moving or speaking so slowly that other people could have noticed? Or the opposite - being so fidgety or restless that you have been moving around a lot more than usual Not at all Thoughts you would be better off or of hurting yourself in some way Not at all If you checked off any problems, how difficult have these problems made it for you to do your work,take care of things at home, or get along with other people? Not difficult at all PHQ-9 Total Score (Auto Calculated) 8 Depression Severity: Mild Depression screening: deferred today as patient has BH appointment tomorrow with [facility]. Patient is aware of appointment . No H/I or S/I Objective: Vitals: Vitals reviewed BP (!) 160/84 (Left Arm, Sitting, Large Adult) Pulse 79 Temp 97.9 ??F (36.6 ??C) Resp 16 Ht5' 5 (1.651 m) Wt 175 lb (79.4 kg) LMP 08/12/2024 SpO2 98% BMI 29.12 kg/m?? OB Status Hormonal Contraceptive Smoking Status Some Days BSA 1.91 m?? Physical Exam: General: AAO X 3. Normal appearance Head: Normocephalic; atraumatic Cardiovascular: Rate and Rhythm: Normal rate and regular rhythm. Pulses: Normal pulses. Heart sounds: Normal heart sounds. Pulmonary: Effort: Pulmonary effort is normal. Breath sounds: Normal breath sounds. Abdominal: General: Bowel sounds are normal. Neurological: Mental Status: He is alert. Psychiatric: Mood and Affect: Mood normal. Body mass index is 29.12 kg/m??. Assessment/Plan: Z76.89 Encounter to establish care (primary encounter diagnosis) J30.2 Seasonal allergies Plan : CETIRIZINE 10 MG TABLET - Take 1 Tablet by mouth once daily FLUTICASONE PROPIONATE 50 MCG/ACTUATION NASAL SPRAY,SUSPENSION - Place 1 [place] in both nostrils once daily shake liquid Z76.0 Medication refill Plan : CETIRIZINE 10 MG TABLET - Take 1 Tablet by mouth once daily FLUTICASONE PROPIONATE 50 MCG/ACTUATION NASAL SPRAY,SUSPENSION - Place 1 [place] in both nostrils once daily shake liquid I10 Essential hypertension - BP elevation in office most likely secondary to missed med doses. Restart losartan 25 mg daily and keep low salt diet G47.00 Insomnia, unspecified type - continue hydroxyzine 50 mg TID for anxiety due to grief and to help sleep at night N92.0 Polymenorrhea - f/u with terrazzo laborer Z23 Immunization due Plan : TDAP VACCINE 7 YRS/> IM PCV20 VACCINE FOR INTRAMUSCULAR USE Z12.11 Screening for colon cancer Plan : LAB COLOGUARD?? COLON CANCER SCREEN AMB - Counseled for healthy lifestyle, dietary habits, physical activity and regular exercise. Avoid fried foods, oily foods and limit foods rich in calories. Increase fruits and vegetables. Exercise most days of the week for abt 20-30 min. - Patient understands and agrees with the plan of care. Return in about 3 months (around 11/12/2024) for CPE. documented in this encounter Miscellaneous Notes * Patient Instructions - TARA Salgado - 08/13/2024 10:08 AM EDT If you are not able to keep your appointment please call 24-48 hours before your appointment to cancel or reschedule. documented in this encounter Plan of Treatment Scheduled Orders Name Type Priority Associated Diagnoses Orde r Schedule LAB COLOGUARD?? COLON CANCER SCREEN AMB Lab Routine Screening for colon cancer Ordered: 08/13/2024 documented as of this encounter Visit Diagnoses Diagnosis Encounter to establish care- Primary Other reasons for seeking consultation Seasonal allergies Allergic rhinitis, cause unspecified Medication refill Issue of repeat prescriptions Essential hypertension Insomnia, unspecified type Polymenorrhea Excessive or frequent menstruation Immunization due Need for prophylactic vaccination and inoculation against unspecified single disease Screening for colon cancer Special screening for malignant neoplasms, colon Grief reaction Adjustment disorder with depressed mood documented in this encounter Additional Health Concerns Assessment Noted Time PHQ-9 Depression Total Score: 8 01/25/20 24 1:45 PM PDT documented as of this encounter Care Teams Synthetic Gem Press Operator Relationship Specialty Start Date End Date Efrem Montana FNP-C [address] [place] [id number] PCP - General Internal Medicine 10/04/23 documented as of this encounter
== END 2024-08-16 10:57 | disposition home or self-care (01) ==
LOC: HO.HWS 10:05
PROVIDERS: Visit Provider Obstetrics & Gynecology
DX: Z32.02 Encounter for pregnancy test, result negative (principal); Z30.430 Encounter for insertion of intrauterine contraceptive device
CPT/HCPCS: 58300